=== PATIENT | female | born 1990 | race Caucasian/White ===

== ENCOUNTER → 2017-05-02 | Outpatient (CLI) | payer OTHER ==
[~2017-05-02] MED LIST: CEPHALEXIN500 M1 PO; LORTAB 5/500 501 TAB PO; NO HOME MEDICATIONS; PRENATAL1 TA3 PO
== END ==
LOC: BHSO 10:40
DX: F20.9 Schizophrenia, unspecified (principal)
CPT/HCPCS: 90791-AI

== ENCOUNTER → 2017-05-19 | Outpatient (CLI) | payer OTHER | LOC: BHSO 09:03 | DX: F31.81 Bipolar II disorder (principal) ==

== ENCOUNTER → 2017-07-24 | Outpatient (CLI) | payer OTHER | LOC: BHSO 08:26 | DX: F43.10 Post-traumatic stress disorder, unspecified (principal) ==

== ENCOUNTER → 2017-09-27 | Outpatient (CLI) | payer SELFPAY | LOC: BHSO 11:44 | DX: F43.10 Post-traumatic stress disorder, unspecified (principal) ==

== ENCOUNTER → 2019-11-04 | Outpatient (CLI) | payer BC | LOC: BHSO 13:02 | DX: F43.10 Post-traumatic stress disorder, unspecified (principal) ==